=== PATIENT | male | born 1995 | race African-American/Black ===

== ENCOUNTER 2017-12-15 19:22 | Emergency (ER) | payer OTHER, SELFPAY ==
[2017-12-15] MEDS ORDERED: Ketorolac Tromethamine 30 MG/ML VIAL ONE (20:08)
[2017-12-15 20:34] LABS: Hemoglobin 14.6 g/dL (14.0-18.0); Mean Corpuscular HGB CONC 35.2 g/dL (32.0-36.0); Mean Corpuscular Hemoglobin 30.4 pg (27.0-31.0); Mean Corpuscular Volume 86.2 fl (80.0-94.0); Mean Platelet Volume 5.8 fL (7.4-10.4); Platelet Count 292 thou/uL (130-400); RBC Distribution Width 10.6 % (11.5-14.5); White Blood Cell (WBC) Count 13.5 thou/uL (4.8-10.8)
[2017-12-15 20:40] LABS: #Basophils 0.3 thou/uL (0.0-0.2); #Eosinphils 0.1 thou/uL (0.0-0.7); #Lymphocytes 1.5 thou/uL (1.20-3.40); #Monocytes 1.9 thou/uL (0.11-0.59); #Neutrophils 9.8 thou/uL (1.40-6.50); %Basophils 1.9 % (0.0-1.0); %Eosinophils 0.8 % (0.0-10.0); %Lymphocytes 11.2 % (21.0-51.0); %Monocytes 13.8 % (0.0-10.0); %Neutrophils 72.4 % (42.0-75.0); Band 5 % (5-11); Eosinophils 1 % (0-10); Lymphocytes 14 % (21-51); MDiff Complete? YES; Monocytes 17 % (0-10); Neutrophil 62 % (42-75); Reactive Lymphocytes 1 % (0-10)
[2017-12-15] MEDS ORDERED: Ciprofloxacin 500 MG TAB ONE (20:45)
[2017-12-15] MEDS ORDERED: metroNIDAZOLE 250 MG TAB ONE (20:45)
== END 2017-12-15 20:56 ==
LOC: BURERS 19:22
DX: K61.0 Anal abscess (principal); J45.909 Unspecified asthma, uncomplicated; F17.210 Nicotine dependence, cigarettes, uncomplicated
CPT/HCPCS: 46050; 85025; 87070; 87077; 87186; 87205; 96361; 96374; J1885; J2001

== ENCOUNTER 2017-12-20 14:03 | Emergency (ER) | payer OTHER, SELFPAY ==
[2017-12-20] MEDS ORDERED: Bacitracin Zinc 1 Packet ONE (14:14)
== END 2017-12-20 14:20 ==
LOC: BURERS 14:03
DX: Z48.817 Encounter for surgical aftercare following surgery on the skin and subcutaneous tissue (principal); F17.210 Nicotine dependence, cigarettes, uncomplicated; J45.909 Unspecified asthma, uncomplicated; Z79.899 Other long term (current) drug therapy
CPT/HCPCS: 99282

== ENCOUNTER 2017-12-29 23:02 | Emergency (ER) | payer OTHER, SELFPAY ==
[2017-12-29 23:51] LABS: CKMB 0.6 ng/mL (0-6.6); Troponin I Less than 0.010 ng/mL (< 0.028)
== END 2017-12-30 00:21 | disposition home or self-care (01) ==
LOC: BURERS 23:02
DX: R07.9 Chest pain, unspecified (principal); J45.909 Unspecified asthma, uncomplicated; F17.210 Nicotine dependence, cigarettes, uncomplicated
CPT/HCPCS: 36415; 82553; 84484; 93005